=== PATIENT | female | born 1955 | race Caucasian/White ===

== ENCOUNTER 2016-07-30 10:47 | Emergency (ER) | payer OTHER ==
[~2016-07-30] VITALS: Ht 157.5 cm; Wt 72.7 kg
[2016-07-30 11:23] LABS: HEMATOCRIT 46.4 % (36.0-46.0); MCH 29.8 PG (29.0-34.0); MCV 90.3 FL (83-99); MEAN PLAT.VOLUME 10.5 uM^3 (9.5-12.4); PLATELET COUNT 243 K/uL (156-360); RBC DIS.WIDTH-CV 13.2 % (11.8-14.6); RBC DIS.WIDTH-SD 43.7 % (39-53); RED BLOOD COUNT 5.14 M/uL (3.80-5.20); WHITE BLOOD COUNT 7.1 K/uL (4.1-10.2)
[2016-07-30 11:30] LABS: CHLORIDE 106 mEq/L (99-109); POTASSIUM 4.2 mEq/L (3.7-5.4); SODIUM 143 mEq/L (136-147)
[2016-07-30 11:32] LABS: GLUCOSE 97 mg/dL (70-99)
[2016-07-30 11:34] LABS: ANION GAP 10 MEQ/L (2-14)
[2016-07-30 11:36] LABS: GFR ESTIMATE (CALCULATED) > 59 mL/min/
[2016-07-30 11:37] LABS: UREA NITROGEN (BUN) 16 mg/dL (9-23)
[2016-07-30 11:42] LABS: TROP-I INTERPRETATION NEGATIVE; TROPONIN-I < 0.01 ng/mL (0.0-0.30)
[2016-07-30 13:17] LABS: TOTAL BILIRUBIN 0.5 mg/dL (0.0-1.0)
[2016-07-30 13:18] LABS: ALKALINE PHOSPHATASE 80 IU/L (3-129)
[2016-07-30 13:21] LABS: DIRECT BILIRUBIN 0.2 mg/dL (0.0-0.3)
[2016-07-30 13:22] LABS: LIPASE 29 U/L (1.0-51.0)
[2016-07-30] MEDS ORDERED: BENTYL20 MG PO (15:06)
[2016-07-30 15:47] VITALS: BP 135/81
== END 2016-07-30 15:50 | disposition home or self-care (01) ==
LOC: EME 10:47
DX: R10.10 Upper abdominal pain, unspecified (principal); R07.9 Chest pain, unspecified; F17.200 Nicotine dependence, unspecified, uncomplicated
CPT/HCPCS: 71020; 71260; 74177; 80048; 80076; 83690; 84484; 85027; 93005; 99281; 99285; J2270; J2405; J7030

== ENCOUNTER 2017-04-25 15:07 | Observation (INO) | payer OTHER ==
[~2017-04-25] VITALS: Ht 157.5 cm; Wt 69.9 kg
[~2017-04-25 15:07] MED LIST: BENTYL20 MG PO
[2017-04-25 16:33] LABS: APPEARANCE CLEAR ((CLEAR)); BILIRUBIN NEGATIVE; BLOOD NEGATIVE; COLOR YELLOW ((YELLOW)); GLUCOSE (STRIP) NEGATIVE; KETONES NEGATIVE; LEUKOCYTES TRACE; NITRITE NEGATIVE; PROTEIN (STRIP) NEGATIVE; SPECIFIC GRAVITY 1.017 (1.000-1.030); UROBILINOGEN 0.2 MG/DL (0.2-1.0)
[2017-04-25 16:34] LABS: HEMATOCRIT 47.5 % (36.0-46.0); HEMOGLOBIN 15.7 G/DL (11.9-15.5); MCH 29.8 PG (29.0-34.0); MCHC 33.1 G/DL (30.0-36.0); MCV 90.1 FL (83-99); PLATELET COUNT 211 K/uL (156-360); RBC DIS.WIDTH-CV 12.9 % (11.8-14.6); RBC DIS.WIDTH-SD 42.4 % (39-53); RED BLOOD COUNT 5.27 M/uL (3.80-5.20); WHITE BLOOD COUNT 7.4 K/uL (4.1-10.2)
[2017-04-25 16:36] LABS: BACTERIA RARE /HPF; EPITHELIAL CELLS 1+ /HPF; MUCUS TRACE /LPF; RED BLOOD CELLS 0-5 /HPF (0-5); UCUL ADDED? NO; WHITE BLOOD CELLS 0-5 /HPF (0-5)
[2017-04-25 16:45] LABS: ALBUMIN 4.2 g/dL (3.2-4.8)
[2017-04-25 16:46] LABS: CHLORIDE 104 mEq/L (99-109); POTASSIUM 3.6 mEq/L (3.7-5.4); SODIUM 142 mEq/L (136-147)
[2017-04-25 16:48] LABS: GLUCOSE 85 mg/dL (70-99); TOTAL PROTEIN 7.3 g/dL (6.4-8.3)
[2017-04-25 16:50] LABS: TOTAL BILIRUBIN 0.6 mg/dL (0.0-1.0)
[2017-04-25 16:51] LABS: ALKALINE PHOSPHATASE 121 IU/L (3-129)
[2017-04-25 16:52] LABS: CREATININE 0.8 mg/dL (0.6-1.3); GFR ESTIMATE (CALCULATED) > 59 mL/min/
[2017-04-25 16:53] LABS: AST (GOT) 56 IU/L (2-34); UREA NITROGEN (BUN) 19 mg/dL (9-23)
[2017-04-25 16:54] LABS: ALT (GPT) 89 IU/L (3-49)
[2017-04-25 16:55] LABS: LIPASE 33 U/L (1.0-51.0)
[2017-04-25 19:08] LABS: TROP-I INTERPRETATION NEGATIVE; TROPONIN-I < 0.01 ng/mL (0.0-0.30)
[2017-04-25] MEDS ORDERED: PRISTIQ50 MG PO (20:38)
[2017-04-25] MEDS ORDERED: KLONOPIN0.5 M1 PO (20:39)
[2017-04-25] MEDS ORDERED: PERCOCET 5/31 TABLET PO (20:39)
[2017-04-25] MEDS ORDERED: TUMS500 MG PO (20:39)
[2017-04-25] MEDS ORDERED: ABILIFY20 MG PO (20:40)
[2017-04-25 21:43] LABS: HEMATOCRIT 42.5 % (36.0-46.0); HEMOGLOBIN 14.4 G/DL (11.9-15.5); MCH 30.8 PG (29.0-34.0); MCHC 33.9 G/DL (30.0-36.0); MCV 90.8 FL (83-99); PLATELET COUNT 176 K/uL (156-360); RBC DIS.WIDTH-CV 13.1 % (11.8-14.6); RBC DIS.WIDTH-SD 43.3 % (39-53); RED BLOOD COUNT 4.68 M/uL (3.80-5.20); WHITE BLOOD COUNT 8.5 K/uL (4.1-10.2)
[2017-04-25 21:52] LABS: D-DIMER ELISA < 150.00 ng/mLDDU (<230); PTT 30.6 SEC (25-37)
[2017-04-25 23:10] VITALS: BP 112/66
[2017-04-26 06:42] LABS: CHLORIDE 110 MEQ/L (99-109); CREATININE 0.7 MG/DL (0.6-1.3); GFR ESTIMATE (CALCULATED) > 59 mL/min/; GLUCOSE 92 mg/dL (70-99); POTASSIUM 3.9 MEQ/L (3.7-5.4); SODIUM 146 MEQ/L (136-147); UREA NITROGEN (BUN) 17 mg/dL (9-23)
[2017-04-26 07:33] VITALS: BP 100/54
[2017-04-26 11:31] VITALS: BP 79/40
[2017-04-26 15:01] VITALS: BP 103/53
[2017-04-26 19:50] VITALS: BP 108/59
[2017-04-26 23:23] VITALS: BP 129/61
[2017-04-27 08:45] VITALS: BP 135/60
[2017-04-27 12:09] VITALS: BP 128/63
[2017-04-27] MEDS ORDERED: BENTYL20 MG PO (15:34)
[2017-04-27] MEDS ORDERED: KETOROLAC TROME10 MG PO (15:34)
[2017-04-27] MEDS ORDERED: VENTOLIN HFA18 GM IH (15:34)
[2017-04-27] MEDS ORDERED: POLYETHYLENE GL17 GM PO (15:35)
[2017-04-27 16:12] VITALS: BP 119/68
[2017-04-27 19:45] VITALS: BP 174/91
[2017-04-28 00:05] VITALS: BP 137/69
[2017-04-28 07:10] VITALS: BP 138/77
[2017-04-28 09:23] LABS: HEMATOCRIT 41.2 % (36.0-46.0); HEMOGLOBIN 13.8 G/DL (11.9-15.5); MCH 29.6 PG (29.0-34.0); MCHC 33.5 G/DL (30.0-36.0); MCV 88.4 FL (83-99); PLATELET COUNT 152 K/uL (156-360); RBC DIS.WIDTH-CV 12.6 % (11.8-14.6); RBC DIS.WIDTH-SD 41.1 % (39-53); RED BLOOD COUNT 4.66 M/uL (3.80-5.20); WHITE BLOOD COUNT 5.5 K/uL (4.1-10.2)
[2017-04-28 09:56] LABS: ALKALINE PHOSPHATASE 100 IU/L (3-129); ALT (GPT) 36 IU/L (3-49); AST (GOT) 17 IU/L (2-34); CHLORIDE 105 MEQ/L (99-109); CREATININE 0.6 MG/DL (0.6-1.3); GFR ESTIMATE (CALCULATED) > 59 mL/min/; GLUCOSE 96 mg/dL (70-99); POTASSIUM 3.9 MEQ/L (3.7-5.4); SODIUM 142 MEQ/L (136-147); TOTAL BILIRUBIN 0.7 MG/DL (0.0-1.0); TOTAL PROTEIN 6.3 G/DL (6.4-8.3); UREA NITROGEN (BUN) 7 mg/dL (9-23)
[2017-04-28] MEDS ORDERED: PERCOCET 5/31 TABLET PO (11:57)
[2017-04-28 12:40] VITALS: BP 118/84
== END 2017-04-28 13:56 | disposition home or self-care (01) ==
LOC: EME 15:07 → 5WEST 20:48 → EDOF 20:48 → ENRESERV 20:51 → 5WEST 23:04
PROVIDERS: Emergency Medicine; Hospitalist; Nurse Practitioner Adult Health
DX: R10.13 Epigastric pain (principal); R10.11 Right upper quadrant pain; R07.9 Chest pain, unspecified; M54.9 Dorsalgia, unspecified; R11.2 Nausea with vomiting, unspecified; F17.200 Nicotine dependence, unspecified, uncomplicated; Z90.49 Acquired absence of other specified parts of digestive tract; K76.0 Fatty (change of) liver, not elsewhere classified; R06.02 Shortness of breath; K59.00 Constipation, unspecified; Z88.5 Allergy status to narcotic agent
CPT/HCPCS: 74177; 74241; 80048; 80053; 81003; 83690; 84484; 85027; 85379; 85610; 85730; 93005; 94640; 99202; 99281; 99285; C9113; G0378; J1650; J1885; J2270; J2405; J7030